=== PATIENT | male | born 1990 | race Caucasian/White ===

== ENCOUNTER 2016-11-04 20:00 | Emergency (ER) | payer OTHER ==
[~2016-11-04] VITALS: Ht 177.8 cm; Wt 83.5 kg
[~2016-11-04 20:00] MED LIST: CYCL-319 PO; HYDR-906 PO; IBUP-1542 PO
[2016-11-04 20:05] VITALS: Ht 177.8 cm; Wt 83.5 kg
[2016-11-04] MEDS ORDERED: CYCLOBENZAPRINE 10 MG TAB PO ONE (21:00)
[2016-11-04] MEDS ORDERED: CYCL-319 PO (21:06)
[2016-11-04] MEDS ORDERED: IBUP800T25 PO (21:06)
--- NOTE | 2016-11-04 22:25 | ERD ---
ER Documentation Chief Complaint Date/Time DATE: 11/04/16 TIME: 22:16 Chief Complaint neck pain x 2 weeks HPI 26-year-old male complaining of left-sided neck pain 6 days. Patient stated the pain has a gradual onset. Pain is now radiating down to his left arm. Described the pain as "on fire". Patient stated the neck pain is worse when he moves. He first noticed the pain when he wakes up in the morning. He normally sleeps on his right side. He went to an physiologist several days ago, and states the pain is better after acupuncture. The physiologist left several needles in his right ear. Patient's wants to get them out. He went to a chiropractor today for the neck pain, was told to come to the ER. Denies neck trauma. Denies fever or chills. Denies left-sided numbness or weakness. ROS All systems reviewed and are negative except as per history of present illness. 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 11/04/16 Cyclobenzaprine Hcl* (Cyclobenzaprine Hcl*) 10 Mg Tablet, 10 MG PO TID, #15 TAB Prov:REUBEN WILLETT NP 01/24/16 Hydrocodone/Acetaminophen ([place] 5-325 Tablet) 1 Each Tablet, 1 TAB PO Q6H Y for PAIN, #20 TAB Prov:REUBEN WILLETT NP 01/24/16 Ibuprofen* (Motrin*) 600 Mg Tab, 600 MG PO Q6H Y for PAIN AND OR ELEVATED TEMP, #30 TAB Prov:REUBEN WILLETT DOOR TO DOOR SALES REPRESENTATIVE 01/24/16 Reported Medications [none] Unknown Strength No Conflict Check 01/24/16 Allergies Allergies: Coded Allergies: No Known Allergy (Unverified , 01/24/16) PMhx/Soc History of Surgery: Yes (DVM SEPTUM) Anesthesia Reaction: No Hx Neurological Disorder: No Hx Respiratory Disorders: No Hx Cardiac Disorders: No Hx Psychiatric Problems: No Hx Miscellaneous Medical Probl: No Hx Alcohol Use: No (SOCIALLY ) Hx Substance Use: Yes (MARIJUANA) Hx Tobacco Use: No Smoking Status: Never smoker Physical Exam Vitals Vital Signs Date Time Temp Pulse Resp B/P Pulse Ox O2 Delivery O2 Flow Rate FiO2 11/04/16 20:05 97.9 106 20 146/86 97 Physical Exam General: Well-developed, well-nourished, conscious and coherent, in no distress Skin: Warm and dry without rash, good texture and turgor Head: Normocephalic without evidence of trauma Eyes: Sclera and conjunctivae normal; pupils equal, round, and reactive to light; extraocular movements are intact Ears: 3 small mental studs noted in the right auricle. Neck: Supple without meningismus or adenopathy. Carotids are equal. Trachea midline. No bruits or JVD. No cervical spine tenderness. Muscle spasm noted at the left upper trapezius. Chest: Normal AP diameter. Good expansion without retractions. Nontender. Lungs are clear to auscultate bilaterally with good tidal volume Heart: Regular rate and rhythm. No murmur, rub, or gallops heard Extremities: Full range of motion. 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 No clubbing, cyanosis, or edema. Peripheral pulses are intact. Sensation intact bilaterally Neuro: Alert and oriented 4, GCS 15. Cranial nerves grossly intact. Motor and sensory exams nonfocal. Moves all extremities. Speech clear. Gait normal Results 24 hrs Current Medications Medications (Trade) Dose Ordered Sig/Robert Route PRN Reason Start Time Stop Time Status Last Admin Dose Admin Cyclobenzaprine HCl (Flexeril) 20 mg ONCE ONCE PO 11/04/16 21:00 11/04/16 21:01 DC 11/04/16 21:01 Procedures/MDM Procedure: Foreign body removal 3 metal stents removed from patient's right auricle without difficulty. The area was then cleansed and dressed. Patient tolerated procedure well. Medical decision-making: Well-appearing 26-year-old male present ED was left neck pain that radiates to his left arm. Patient does not have any midline C-spine tenderness. I doubt cervical radiculopathy, cervical spine fracture, subluxation, disc herniation, spinal epidural abscess. Patient symptoms and exam findings consistent with neck muscle spasm. I discussed with patient on the benefits and risks of trigger point injections. Patient elected not to proceed with trigger point injections. Flexeril p.o. given to the patient in the ED. Patient advised to apply heating pad and obtain massage to help ease the muscle spasm. Patient appears well, stable for discharge and outpatient management. Medical decision making shared with patient and family. Education provided to patient and family. Patient and family expressed understanding of the plan. Medications on discharge: Flexeril, ibuprofen. Follow-up: Primary care provider in 2-3 days or return to ED if worse. Disclaimer: Inadvertent spelling and grammatical errors are likely due to EHR/ dictation software use and do not reflect on the overall quality of patient care. Also, please note that the electronic time recorded on this note does not necessarily reflect the actual time of the patient encounter. Departure Diagnosis: Primary Impression: Neck muscle spasm Additional Impression: Foreign body of external ear Condition: Stable Patient Instructions: Neck Spasm, No Trauma Referrals: [facility] YOU HAVE RECEIVED A MEDICAL SCREENING EXAM AND THE RESULTS INDICATE THAT YOU DO NOT HAVE A CONDITION THAT REQUIRES URGENT TREATMENT IN THE EMERGENCY DEPARTMENT. FURTHER EVALUATION AND TREATMENT OF YOUR CONDITION CAN WAIT UNTIL YOU ARE SEEN IN YOUR DOCTORS OFFICE WITHIN THE NEXT 1-2 DAYS. IT IS YOUR RESPONSIBILITY TO MAKE AN APPOINTMENT FOR FOLOW-UP CARE. IF YOU HAVE A PRIMARY DOCTOR --you should call your primary doctor and schedule an appointment IF YOU DO NOT HAVE A PRIMARY DOCTOR YOU CAN CALL OUR PHYSICIAN REFERRAL HOTLINE AT IF YOU CAN NOT AFFORD TO SEE A PHYSICIAN YOU CAN CHOSE FROM THE FOLLOWING [facility] [address] [facility] [address] [facility] [address] [facility] [address] [facility] [address] [facility] [facility]. [address] Additional Instructions: Call your primary care doctor TOMORROW for an appointment during the next 2-3 days.See the doctor sooner or return here if your condition worsens before your appointment time. Ask your PCP for physical therapy referral. Get a deep tissue massage of your neck and shoulders. GANGA FELTON. VIDHI Nov 04, 2016 22:25
== END 2016-11-04 21:21 | disposition home or self-care (01) ==
LOC: FTE 20:00
DX: M62.838 Other muscle spasm (principal); T16.1XXA Foreign body in right ear, initial encounter; R40.2412 Glasgow coma scale score 13-15, at arrival to emergency department; X58.XXXA Exposure to other specified factors, initial encounter; Y92.9 Unspecified place or not applicable
CPT/HCPCS: 99283